=== PATIENT | male | born 1985 | race Caucasian/White ===

== ENCOUNTER 2018-03-22 15:32 | Emergency (ER) | payer SELFPAY ==
[~2018-03-22] VITALS: Ht 177.8 cm; Wt 60.0 kg
[~2018-03-22 15:32] MED LIST: IMODIUM2 MG PO; PREVACID30 M2 PO; PRILOSEC20 MG PO; ZOFRAN ODT8 MG PO
[2018-03-22] MEDS ORDERED: TEGRETOL200 MG PO ×2 (15:46)
[2018-03-22] MEDS ORDERED: TEGRETOL PO (15:49)
[2018-03-22 15:55] VITALS: BP 134/76
== END 2018-03-22 15:55 | disposition home or self-care (01) | DRG 951 ==
LOC: ED 15:32
DX: Z76.0 Encounter for issue of repeat prescription (principal); F41.9 Anxiety disorder, unspecified; E78.5 Hyperlipidemia, unspecified